=== PATIENT | male | born 1965 | race Hispanic/Latino ===

== ENCOUNTER 2017-03-10 09:51 | Day surgery (SDC) | payer OTHER ==
[2017-03-10 09:51] VITALS: BMI 24.0
--- NOTE | 2017-03-10 10:19 | C.PDOC ---
History Of Present Illness 51 year old male presents to the ED after being sent by Dr. Barahona for hernia repair surgery. Patient states he has had a left-sided inguinal hernia and pain for 2 weeks which has worsened. He denies fever, chills, vomiting, diarrhea, urinary/bowel incontinence at this time. Time Seen by Provider: 03/10/17 10:12 Chief Complaint (Nursing): Medical Clearance History Per: Patient History/Exam Limitations: no limitations Onset/Duration Of Symptoms: Other (2 weeks ) Current Symptoms Are (Timing): Worse Additional History Per: Patient Past Medical History Reviewed: Historical Data, Nursing Documentation, Vital Signs Vital Signs: Last Vital Signs Temp 97.8 F 03/10/17 11:47 Pulse 61 03/10/17 11:47 Resp 18 03/10/17 11:47 BP 112/77 03/10/17 11:47 Pulse Ox 98 03/10/17 14:50 - Medical History PMH: No Chronic Diseases Surgical History: No Surg Hx Family History: States: Unknown Family Hx - Social History Hx Alcohol Use: No Hx Substance Use: No Review Of Systems Constitutional: Negative for: Fever, Chills Gastrointestinal: Positive for: Other (left inguinal hernia ). Negative for: Vomiting, Diarrhea, Rectal Pain Genitourinary: Negative for: Incontinence Skin: Negative for: Rash Neurological: Negative for: Headache Physical Exam - Physical Exam Appears: Non-toxic, No Acute Distress Skin: Normal Color, Warm, Dry Head: Atraumatic, Normacephalic Eye(s): bilateral: Normal Inspection Oral Mucosa: Moist Neck: Normal ROM Chest: Symmetrical, No Deformity, No Tenderness Cardiovascular: Rhythm Regular, No Murmur Respiratory: Normal Breath Sounds, No Rales, No Rhonchi, No Wheezing Gastrointestinal/Abdominal: Soft, No Tenderness, No Guarding, No Rebound, Hernia (left-sided, inguinal ) Extremity: Bilateral: Atraumatic, Normal Color And Temperature, Normal ROM Neurological/Psych: Oriented x3, Normal Speech Gait: Steady ED Course And Treatment O2 Sat by Pulse Oximetry: 98 (on RA ) Pulse Ox Interpretation: Normal - Other Rad CXR X-Ray: Interpreted by Me, Viewed By Me, Read By Radiologist Interpretation: HISTORY: BASELINE. COMPARISON: None available. TECHNIQUE: Chest PA and lateral. FINDINGS: Examination limited by habitus. LUNGS: Biapical pleural thickening. No focal consolidation. Please note that chest x- ray has limited sensitivity for the detection of pulmonary masses. PLEURA: No significant pleural effusion identified. No definite pneumothorax . CARDIOVASCULAR: Heart size appears within normal limits. OSSEOUS STRUCTURES: Degenerative changes. VISUALIZED UPPER ABDOMEN: Unremarkable. OTHER FINDINGS : None. IMPRESSION: Biapical pleural thickening. Medical Decision Making Medical Decision Making: Impression: 51 year old male with left inguinal hernia Plan: * Bloodwork * CXR Progress: Bloodwork and CXR ordered and reviewed. Dr Barahona in ED and wants patient admitted to his service Disposition - Disposition Disposition: HOSPITALIZED Disposition Time: 12:00 Condition: STABLE - POA Present On Arrival: None - Clinical Impression Clinical Impression: Inguinal hernia - PA / GLASS TUBE BENDER / Resident Statement MD/DO has reviewed & agrees with the documentation as recorded. - Scribe Statement The provider has reviewed the documentation as recorded by the Scribe (Barbara Quinones) All medical record entries made by the Scribe were at my direction and personally dictated by me. I have reviewed the chart and agree that the record accurately reflects my personal performance of the history, physical exam, medical decision making, and the department course for this patient. I have also personally directed, reviewed, and agree with the discharge instructions and disposition. Decision To Admit - Pt Status Changed To: Hospital Disposition Of: Inpatient - Admit Certification Admit to Inpatient:: After my assessment, the patient will require hospitalization for at least two midnights. This is because of the severity of symptoms shown, intensity of services needed, and/or the medical risk in this patient being treated as an outpatient. - InPatient: Physician Admission Certification: I certify that this patient requires 2 or more midnights of care for the following reason:: Patient with abd pain and inguinal hernia. Scheduled for surgery with Jun and tanner CRONIN prior - . Bed Request Type: Regular Patient Diagnosis: Inguinal hernia
--- NOTE | 2017-03-10 12:04 | RAD ---
HISTORY: BASELINE COMPARISON: None available. TECHNIQUE: Chest PA and lateral FINDINGS: Examination limited by habitus. LUNGS: Biapical pleural thickening. No focal consolidation. Please note that chest x-ray has limited sensitivity for the detection of pulmonary masses. PLEURA: No significant pleural effusion identified. No definite pneumothorax . CARDIOVASCULAR: Heart size appears within normal limits. OSSEOUS STRUCTURES: Degenerative changes. VISUALIZED UPPER ABDOMEN: Unremarkable. OTHER FINDINGS: None. IMPRESSION: Biapical pleural thickening.
[2017-03-10] MEDS ORDERED: Midazolam 2 MG/2 ML VIAL ONE (12:40)
[2017-03-10] MEDS ORDERED: Propofol 10 mg/ml Inj (20 ML) ONE (12:40)
[2017-03-10] MEDS ORDERED: Bupivacaine-Epi 0.25%-1:200,000 PF Inj ONE (13:19)
[2017-03-10] MEDS ORDERED: ceFAZolin IV 1 gm in Dextrose 1 GM/50 ML BAG IVPB ONE (13:19)
[2017-03-10] MEDS ORDERED: Lidocaine 1% Inj (20ml) ONE (13:19)
[2017-03-10] MEDS ORDERED: Succinylcholine Chloride 20 mg/ml Syr (5 ml) IV ONE ×2 (13:22→14:25)
--- NOTE | 2017-03-10 15:12 | PCM.SURG1 ---
Surgeon's Initial Post Op Note - Surgeon's Notes Surgeon: Display Specialist: , Type of Anesthesia: General Endo, Local Pre-Operative Diagnosis: Left reducible inguinal hernia Operative Findings: Left direct and indirect inguinal hernia Post-Operative Diagnosis: Left direct and indirect inguinal hernia Operation Performed: Left inguinal hernia repair with mesh Specimen/Specimens Removed: lipoma of the cord Estimated Blood Loss: EBL {In ML}: 10 Blood Products Given: N/A Drains Used: No Drains Post-Op Condition: Good Date of Surgery/Procedure: 03/10/17 Time of Surgery/Procedure: 15:13
[2017-03-10] MEDS: HYDROmorphone 0.5 mg/0.5 ml ISec IVP PRN ×5 (15:18→16:06)
[2017-03-10] MEDS ORDERED: Lactated Ringer's 1,000 ML IV ONE ×2 (18:24→19:00)
[2017-03-10 18:58] VITALS: BP 108/67; PULSE 57; RESP 16; TEMP 97.2; O2SAT 98
--- NOTE | 2017-03-10 20:05 | OP ---
PROCEDURE DATE: 03/10/2017 The patient is a 51-year-old man, history of previous hernia repair on the right side, seen previously in the office for hernia, surgery discussed today with increasing pain. For this reason, he was advised to come to the emergency room. OPERATIVE FINDINGS: The patient had acute pain in the area. There was no evidence of an incarcerated hernia. PROCEDURE: The patient was given general anesthesia and intravenous antibiotics. Lidocaine was injected. An incision was made in groin. The external oblique was exposed. The cord and its contents identified and reduced. The defect which is primarily an indirect hernia with some weakness in the direct space was reduced and large PHS Prolene hernia system mesh was placed into position. This was then . The top edge was then sutured and clipped to surrounding tissues. The nerve was carefully identified and preserved, and the skin was closed with subcuticular closure and Steri-Strips. Blood loss for the procedure was 10 mL. Operation carried out was emergency repair of left inguinal hernia. Primary finding of an indirect inguinal hernia with a sac which was inverted. Austin Barahona Jr., MD cc: Celso Cabral DO
== END 2017-03-10 20:05 | disposition home or self-care (01) ==
LOC: C.ER 09:51 → C.9E 11:16 → UNDOADMIN 11:16 → C.SDS 11:51 → UNDOADMIN 11:52 → C.9E 11:52 → C.SDS 20:05 → UNDODISIN 20:05
PROVIDERS: ATTEND Surgery Vascular Surgery
DX: K40.90 Unilateral inguinal hernia, without obstruction or gangrene, not specified as recurrent (principal)
CPT/HCPCS: 49505; 71020; 85610; 85730; 86850; 86900; 88304; 99285; C1781; J0690; J1100; J1170; J1885; J2250; J2405; J2704; J3010; J7120